=== PATIENT | male | born 1970 | race Two or more races ===

== ENCOUNTER 2016-09-16 13:22 | Inpatient (IN) | payer OTHER ==
[2016-09-16 17:42] VITALS: BMI 25.5
--- NOTE | 2016-09-16 18:03 | HP ---
Admission [facility] Chief Complaint: I WANT TO GO TO REHAB Allergies/Adverse Reactions: Allergies Allergy/AdvReac Type Severity Reaction Status Date / Time peanut Allergy Severe Difficulty Verified 09/16/16 17:48 Breathing No Known Drug Allergies Allergy Verified 09/16/16 17:48 History of Present Illness: 45 YEARS OLD MALE WITH LONG HISTORY OF COCAINE NICOTINE DEPENDENCE DIABETES II METHADONE MAINTENANCE 100 MG IS ADMITTED TO REHAB Exam Limitations: No Limitations - Ebola screening Have you traveled outside of the country in the last 21 days: No Have you had contact with anyone from an Ebola affected area: No Have you been sick,other than usual withdrawal symptoms: No Do you have a fever: No - Review of Systems Constitutional: Loss of Appetite, Unintentional Wgt. Loss, Unexplained wgt Loss EENT: reports: Blurred Vision (NEEDED EYE GLASSES), Hearing Loss (LEFT), Dental Problems (UPPER DENTURE) Respiratory: reports: No Symptoms reported Cardiac: reports: No Symptoms Reported GI: reports: No Symptoms Reported, Poor Fluid Intake : reports: No Symptoms Reported Musculoskeletal: reports: No Symptoms Reported Integumentary: reports: Change in Color (RIGHT ELBOW) Neuro: reports: No Symptoms reported Endocrine: reports: No Symptoms Reported Patient History - Patient Medical History Hx Anemia: No Hx Asthma: No Hx Chronic Obstructive Pulmonary Disease (COPD): No Hx Cancer: No Hx Cardiac Disorders: No Hx Congestive Heart Failure: No Hx Hypertension: No Hx Hypercholesterolemia: No Hx Pacemaker: No HX Cerebrovascular Accident: No Hx Seizures: No Hx Dementia: No Hx Diabetes: Yes Hx Gastrointestinal Disorders: No Hx Liver Disease: No Hx Genitourinary Disorders: No Hx Sexually Transmitted Disorders: No Hx Renal Disease (ESRD): No Hx Thyroid Disease: No Hx Human Immunodeficiency Virus (HIV): No Hx Hepatitis C: Yes (SCHEDULE TO TREAT) Hx Depression: Yes Hx Suicide Attempt: Yes (2012 CUT NECK) Hx Bipolar Disorder: No Hx Schizophrenia: No - Patient Surgical History Past Surgical History: Yes Hx Neurologic Surgery: No Hx Cataract Extraction: No Hx Cardiac Surgery: No Hx Lung Surgery: No Hx Breast Surgery: No Hx Breast Biopsy: No Hx Abdominal Surgery: Yes (R HERNIA INGURNAL) Hx Appendectomy: No Hx Cholecystectomy: No Hx Genitourinary Surgery: No Hx Orthopedic Surgery: No Other Surgical History: LEFT NECK GUN Anesthesia Reaction: No - PPD History Previous Implant?: Yes Documented Results: Negative w/o proof Implanted On Prior [facility] Admission?: No PPD to be Administered?: Yes - Smoking Cessation Smoking history: Current every day smoker Have you smoked in the past 12 months: Yes Aproximately how many cigarettes per day: 3 Cigars Per Day: 0 Hx Chewing Tobacco Use: No Initiated information on smoking cessation: Yes 'Breaking Loose' booklet given: 09/16/16 - Substance & Tx. History Hx Alcohol Use: No Hx Substance Use: Yes Substance Use Type: Cocaine, Opiates Hx Substance Use Treatment: Yes - Substances Abused Cocaine Route: Injection Frequency: Daily Amount used: 30 BAGS Age of first use: 18 Date of Last Use: 09/15/16 Heroin Route: Inhalation Frequency: Daily Amount used: 3 bags Age of first use: 38 Date of Last Use: 09/16/16 Family Disease History - Family Disease History Family History: Unremarkable Admission Physical Exam [facility] - Vital Signs Vital Signs: Vital Signs - 24 hr 09/16/16 17:39 Temperature 95 F L Pulse Rate 51 L Respiratory 16 Rate Blood Pressure 116/72 - Physical General Appearance: Yes: No Apparent Distress, Appropriately Dressed, Thin HEENTM: Yes: Hearing grossly Normal, Normal ENT Inspection, Normocephalic, Normal Voice Respiratory: Yes: Chest Non-Tender, Lungs Clear, Normal Breath Sounds, No Respiratory Distress, No Accessory Muscle Use Neck: Yes: Supple, Trachea in good position Breast: Yes: Breasts Symetrical Cardiology: Yes: Regular Rhythm, Regular Rate, S1, S2 Abdominal: Yes: Non Tender, Soft Genitourinary: Yes: Within Normal Limits Back: Yes: Normal Inspection Musculoskeletal: Yes: full range of Motion, Gait Steady Neurological: Yes: Fully Oriented, Alert, Motor Strength 5/5, Normal Mood/Affect , Normal Response Integumentary: Yes: Warm, Track Barber Lymphatic: Yes: Within Normal Limits - Diagnostic (1) Cocaine dependence, uncomplicated Current Visit: Yes Status: Chronic (2) Methadone maintenance therapy patient Current Visit: Yes Status: Chronic Comment: 100 MG VERIFICATION PENDING (3) Nicotine dependence Current Visit: Yes Status: Acute Qualifiers: Nicotine product type: cigarettes Substance use status: in withdrawal Qualified Code(s): F17.213 - Nicotine dependence, cigarettes, with withdrawal (4) Hepatitis C antibody test positive Current Visit: Yes Status: Resolved (5) Weight loss Current Visit: Yes Status: Acute (6) Diabetes mellitus type II, controlled Current Visit: Yes Status: Chronic Qualifiers: Diabetes mellitus complication status: without complication Diabetes mellitus insole taper insulin use: with insole taper use Qualified Code(s): E11.9 - Type 2 diabetes mellitus without complications (7) Use of cane as ambulatory aid Current Visit: Yes Status: Chronic [facility] Breath Alcohol Content Breath Alcohol Content: 0 Urine Drug Screen - Results Drug Screen Negative: No Urine Drug Screen Results: LUCI-Cocaine, OPI-Opiates, MTD-Methadone
[2016-09-16] MEDS ORDERED: MAGNESIUM HYDROX 2400MG/30ML ORAL SUSPENSION 30 ML CUP PO PRN (18:18)
[2016-09-16] MEDS ORDERED: MAGNESIUM CITRATE 300 ML BOTTLE PO PRN (18:18)
[2016-09-16] MEDS ORDERED: hydrOXYzine PAMOATE 50 MG CAPSULE (FP) PO PRN (18:18)
[2016-09-16] MEDS ORDERED: NICOTINE POLACRILEX 2 MG GUM BC PRN (18:18)
[2016-09-16] MEDS ORDERED: ACETAMINOPHEN 325 MG TABLET (FP) PO PRN (18:18)
[2016-09-16] MEDS ORDERED: P-EPHED 60MG/TRIPROLIDI 2.5MG TABLET PO PRN (18:18)
[2016-09-16] MEDS ORDERED: MAG HYDROX/AL HYDROX/SIMETH 30 ML UNIT-DOSE CUP PO PRN (18:18)
[2016-09-16] MEDS ORDERED: LOPERAMIDE HCL 2 MG CAPSULE PO PRN (18:18)
[2016-09-16] MEDS ORDERED: IBUPROFEN 400 MG TABLET (FP) PO PRN (18:18)
[2016-09-16] MEDS ORDERED: MENTHOL/PHENOL 1 EACH UD MM PRN (18:18)
[2016-09-16] MEDS ORDERED: guaiFENesin/D-METHORPHAN HB 10 ML UNIT-DOSE CUPS PO PRN (18:18)
[2016-09-16] MEDS: INSULIN SLIDING SCALE (NOVOLOG) 1 VIAL SQ SCH (20:59)
[2016-09-16] MEDS ORDERED: INSULIN (NOVOLOG) ASPART 100 UNITS/ML 10ML VIAL ONE (20:59)
[2016-09-16] MEDS: THIAMINE HCL 100 MG TABLET (FP) PO SCH (21:01)
[2016-09-17] MEDS ORDERED: INSULIN (NOVOLOG) ASPART 100 UNITS/ML 10ML VIAL ONE ×2 (06:04→21:39)
[2016-09-17] MEDS: metFORMIN HCL 500 MG TABLET (FP) PO SCH (06:05)
[2016-09-17] MEDS: INSULIN SLIDING SCALE (NOVOLOG) 1 VIAL SQ SCH ×2 (06:25→21:39)
[2016-09-17] MEDS ORDERED: METHADONE HCL 40 MG DISPERSABLE TABLET PO SCH (07:30)
[2016-09-17] MEDS ORDERED: METHADONE 80 MG, METHADONE 20 MG PO SCH (07:45)
[2016-09-17] MEDS ORDERED: METHADONE HCL 10 MG TABLET ONE (07:50)
[2016-09-17] MEDS ORDERED: METHADONE HCL 40 MG DISPERSABLE TABLET ONE (07:50)
[2016-09-17] MEDS: METHADONE 80 MG, METHADONE 20 MG PO SCH (07:57)
[2016-09-17] MEDS ORDERED: TUBERCULIN PPD 5 TU/0.1ML VIAL ID ONE (08:11)
[2016-09-17 10:01] LABS: MCH 32.5 pg (25.7-33.7); MCHC 34.1 g/dl (32.0-35.9); MEAN CELL VOLUME 95.2 fl (80-96); MEAN PLT VOLUME 9.6 fl (7.5-11.1); PLATELET COUNT 175 K/MM3 (134-434); RDW 14.2 % (11.9-15.9); WHITE BLOOD COUNT 6.3 K/mm3 (4.0-10.0)
[2016-09-17] MEDS: PRENATAL VITAMINS W/ FOLIC ACID TABLET (FP) PO SCH (10:29)
[2016-09-17] MEDS: NICOTINE 14 MG/24 HOURS TOPICAL PATCH TD SCH (10:30)
[2016-09-17 10:36] LABS: ALBUMIN 3.5 g/dl (3.4-5.0); ALK PHOS 130 U/L (45-117); ANION GAP 11 (8-16); BILIRUBIN,TOTAL 0.3 mg/dL (0.2-1.0); CALCIUM 8.7 mg/dL (8.5-10.1); CO2 26 mmol/L (21-32); COCKROFT - GAULT 98.88; CREATININE 1.1 mg/dL (0.7-1.3); SGOT/AST 71 U/L (15-37); SGPT/ALT 100 U/L (12-78); TOT PROT 6.8 g/dl (6.4-8.2)
[2016-09-17 11:16] LABS: HIV 1 & 2 AB NEGATIVE; HIV 1 AGp24 NEGATIVE
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
[2016-09-17 12:04] LABS: GLUCOSE,RANDOM 390 mg/dL (74-106)
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
[2016-09-17] MEDS: GABAPENTIN 100 MG CAPSULE (FP) PO SCH ×2 (14:55→21:40)
[2016-09-17] MEDS: THIAMINE HCL 100 MG TABLET (FP) PO SCH (21:40)
--- NOTE | 2016-09-17 23:07 | EKG ---
Test Reason : Blood Pressure : / mmHG Vent. Rate : 050 BPM Atrial Rate : 050 BPM P-R Int : 130 ms QRS Dur : 084 ms QT Int : 424 ms P-R-T Axes : 048 -27 013 degrees QTc Int : 386 ms SINUS BRADYCARDIA NONSPECIFIC T WAVE ABNORMALITY ABNORMAL ECG NO PREVIOUS ECGS AVAILABLE Confirmed by SILVIA GOLD MD ([id number]) on 09/17/2016 11:07:05 PM Referred By: Confirmed By:SILVIA GOLD MD
[2016-09-18] MEDS ORDERED: METHADONE HCL 10 MG TABLET ONE (03:27)
[2016-09-18] MEDS ORDERED: METHADONE HCL 40 MG DISPERSABLE TABLET ONE (03:27)
[2016-09-18] MEDS: METHADONE 80 MG, METHADONE 20 MG PO SCH (06:12)
[2016-09-18] MEDS: GABAPENTIN 100 MG CAPSULE (FP) PO SCH ×3 (06:12→21:31)
[2016-09-18] MEDS: metFORMIN HCL 500 MG TABLET (FP) PO SCH (06:12)
[2016-09-18] MEDS: INSULIN SLIDING SCALE (NOVOLOG) 1 VIAL SQ SCH ×2 (06:15→21:31)
[2016-09-18] MEDS ORDERED: INSULIN (NOVOLOG) ASPART 100 UNITS/ML 10ML VIAL ONE ×2 (06:40→21:31)
[2016-09-18] MEDS: NICOTINE 14 MG/24 HOURS TOPICAL PATCH TD SCH (10:16)
[2016-09-18] MEDS: PRENATAL VITAMINS W/ FOLIC ACID TABLET (FP) PO SCH (10:16)
[2016-09-18 14:15] LABS: URINE APPEARANCE CLEAR; URINE BILIRUBIN NEGATIVE (NEGATIVE); URINE BLOOD NEGATIVE (NEGATIVE); URINE COLOR LTYELLOW; URINE GLUCOSE (UA) 3+ (NEGATIVE); URINE KETONE NEGATIVE (NEGATIVE); URINE LEUK ESTERASE NEGATIVE (NEGATIVE); URINE NITRITE NEGATIVE (NEGATIVE); URINE PROTEIN NEGATIVE (NEGATIVE); URINE UROBILINOGEN NEGATIVE E.U./dl (0.2-1.0)
[2016-09-18] MEDS: THIAMINE HCL 100 MG TABLET (FP) PO SCH (21:31)
[2016-09-19] MEDS ORDERED: METHADONE HCL 10 MG TABLET ONE (05:47)
[2016-09-19] MEDS ORDERED: METHADONE HCL 40 MG DISPERSABLE TABLET ONE (05:48)
[2016-09-19] MEDS: INSULIN SLIDING SCALE (NOVOLOG) 1 VIAL SQ SCH ×2 (06:40→21:40)
[2016-09-19] MEDS: GABAPENTIN 100 MG CAPSULE (FP) PO SCH ×3 (06:40→21:37)
[2016-09-19] MEDS: metFORMIN HCL 500 MG TABLET (FP) PO SCH (06:40)
[2016-09-19] MEDS: METHADONE 80 MG, METHADONE 20 MG PO SCH (06:41)
[2016-09-19] MEDS: NICOTINE 14 MG/24 HOURS TOPICAL PATCH TD SCH (10:19)
[2016-09-19] MEDS: PRENATAL VITAMINS W/ FOLIC ACID TABLET (FP) PO SCH (10:20)
--- NOTE | 2016-09-19 13:00 | PN ---
S Progress Note (SOAP) Subjective: nausea, with abdominal pain worse after meals , assoc. with diarrhea Objective: 09/19/16 12:59 Vital Signs Temperature 97.4 F L 09/19/16 06:57 Pulse Rate 63 09/19/16 06:57 Respiratory Rate 18 09/19/16 06:57 Blood Pressure 129/84 09/19/16 06:57 O2 Sat by Pulse Oximetry (%) Laboratory Tests 09/16/16 09/17/16 09/17/16 20:51 06:00 06:00 WBC 6.3 RBC 3.95 L Hgb 12.8 Hct 37.6 MCV 95.2 MCHC 34.1 RDW 14.2 Plt Count 175 MPV 9.6 Sodium 143 Potassium 4.0 Chloride 106 Carbon Dioxide 26 Anion Gap 11 BUN 6 L Creatinine 1.1 Creat Clearance w eGFR > 60 POC Glucometer 438 Random Glucose 390 H* Calcium 8.7 Total Bilirubin 0.3 AST 71 H ALT 100 H Alkaline Phosphatase 130 H Total Protein 6.8 Albumin 3.5 Urine Color Urine Appearance Urine pH Ur Specific Porum Urine Protein Urine Glucose (UA) Urine Ketones Urine Blood Urine Nitrite Urine Bilirubin Urine Urobilinogen Ur Leukocyte Esterase RPR Titer HIV 1&2 Antibody Screen HIV P24 Antigen 09/17/16 09/17/16 09/17/16 06:00 06:02 07:00 WBC RBC Hgb Hct MCV MCHC RDW Plt Count MPV Sodium Potassium Chloride Carbon Dioxide Anion Gap BUN Creatinine Creat Clearance w eGFR POC Glucometer 304 Random Glucose Calcium Total Bilirubin AST ALT Alkaline Phosphatase Total Protein Albumin Urine Color Urine Appearance Urine pH Ur Specific Porum Urine Protein Urine Glucose (UA) Urine Ketones Urine Blood Urine Nitrite Urine Bilirubin Urine Urobilinogen Ur Leukocyte Esterase RPR Titer Nonreactive HIV 1&2 Antibody Screen Negative HIV P24 Antigen Negative 09/17/16 09/18/16 09/18/16 21:37 06:13 11:10 WBC RBC Hgb Hct MCV MCHC RDW Plt Count MPV Sodium Potassium Chloride Carbon Dioxide Anion Gap BUN Creatinine Creat Clearance w eGFR POC Glucometer 336 231 Random Glucose Calcium Total Bilirubin AST ALT Alkaline Phosphatase Total Protein Albumin Urine Color Ltyellow Urine Appearance Clear Urine pH 5.0 Ur Specific Porum 1.020 Urine Protein Negative Urine Glucose (UA) 3+ H Urine Ketones Negative Urine Blood Negative Urine Nitrite Negative Urine Bilirubin Negative Urine Urobilinogen Negative Ur Leukocyte Esterase Negative RPR Titer HIV 1&2 Antibody Screen HIV P24 Antigen 09/18/16 09/19/16 21:30 06:39 WBC RBC Hgb Hct MCV MCHC RDW Plt Count MPV Sodium Potassium Chloride Carbon Dioxide Anion Gap BUN Creatinine Creat Clearance w eGFR POC Glucometer 333 183 Random Glucose Calcium Total Bilirubin AST ALT Alkaline Phosphatase Total Protein Albumin Urine Color Urine Appearance Urine pH Ur Specific Porum Urine Protein Urine Glucose (UA) Urine Ketones Urine Blood Urine Nitrite Urine Bilirubin Urine Urobilinogen Ur Leukocyte Esterase RPR Titer HIV 1&2 Antibody Screen HIV P24 Antigen pt aox3 ambulating with cane appearing uneasy 09/19/16 13:00 lungs clear to a/p cor rrr, no murmur abd well healed rlq scar, soft, mild ruq tenderness , no mass or rebound , bs active 09/19/16 13:05 Assessment: 09/19/16 13:06 m diabetic with ruq pain , nausea r/o gbd Plan: cbc sma7, ketones u/a sgot sgpt amylase lipase u/s of abdomen [id number] po bid
[2016-09-19 15:55] LABS: BASOPHIL 0.6 % (0-2.0); EOSINOPHIL 1.8 % (0-4.5); MCH 32.2 pg (25.7-33.7); MCHC 34.3 g/dl (32.0-35.9); MEAN CELL VOLUME 93.8 fl (80-96); MEAN PLT VOLUME 8.8 fl (7.5-11.1); NEUTROPHILS 61.7 % (42.8-82.8); PLATELET COUNT 196 K/MM3 (134-434); WHITE BLOOD COUNT 6.7 K/mm3 (4.0-10.0)
[2016-09-19 15:57] LABS: AMYLASE 62 U/L (25-115); ANION GAP 7 (8-16); CALCIUM 8.5 mg/dL (8.5-10.1); CO2 29 mmol/L (21-32); COCKROFT - GAULT 108.77; GLUCOSE,RANDOM 269 mg/dL (74-106)
[2016-09-19 15:58] LABS: SGOT/AST 69 U/L (15-37); SGPT/ALT 95 U/L (12-78)
[2016-09-19 20:20] LABS: ACETONE SERUM NEGATIVE (NEGATIVE)
[2016-09-19] MEDS: RANITIDINE HCL 150 MG TABLET (FP) PO SCH (21:37)
[2016-09-19] MEDS: diphenhydrAMINE HCL 50 MG CAPSULE PO PRN (21:37)
[2016-09-19] MEDS: THIAMINE HCL 100 MG TABLET (FP) PO SCH (21:37)
[2016-09-20] MEDS ORDERED: METHADONE HCL 10 MG TABLET ONE (03:24)
[2016-09-20] MEDS ORDERED: METHADONE HCL 40 MG DISPERSABLE TABLET ONE (03:25)
[2016-09-20] MEDS: METHADONE 80 MG, METHADONE 20 MG PO SCH (06:14)
[2016-09-20] MEDS: metFORMIN HCL 500 MG TABLET (FP) PO SCH (06:14)
[2016-09-20] MEDS: GABAPENTIN 100 MG CAPSULE (FP) PO SCH ×4 (06:14→22:52)
[2016-09-20] MEDS: INSULIN SLIDING SCALE (NOVOLOG) 1 VIAL SQ SCH ×2 (06:15→21:45)
[2016-09-20] MEDS: NICOTINE 14 MG/24 HOURS TOPICAL PATCH TD SCH (10:04)
[2016-09-20] MEDS: PRENATAL VITAMINS W/ FOLIC ACID TABLET (FP) PO SCH ×2 (10:04→10:48)
[2016-09-20] MEDS: RANITIDINE HCL 150 MG TABLET (FP) PO SCH ×3 (10:04→21:40)
--- NOTE | 2016-09-20 13:37 | PN ---
Psychiatric Progress Note Vital Signs: Vital Signs Period Temp Pulse Resp BP Sys/Bose Pulse Ox Last 24 Hr 98.1 F 53 16-16 123/80 Date of Session: 09/20/16 Chief Complaint:: psychiatric evaluation HPI: patient is a 45 year old with hisotry of cocaine, opioid, nicotine dependence comorbid PTSD, Depression. Current Medications: Active Medications Generic Name Dose Route Start Last Admin Trade Name Freq PRN Reason Stop Dose Admin Acetaminophen 650 mg 09/16/16 18:18 Tylenol - PO Q4H PRN PAIN Al Hydroxide/Mg Hydroxide 30 ml 09/16/16 18:18 09/19/16 08:27 Mylanta Oral Suspension - PO 30 ml Q6H PRN Administration DYSPEPSIA Diphenhydramine HCl 50 mg 09/16/16 18:18 09/19/16 21:37 Benadryl - PO 50 mg HSMR1 PRN Administration INSOMNIA Eucalyptus/Menthol/Phenol/Sorbitol 1 each 09/16/16 18:18 Cepastat Lozenge - MM Q4H PRN SORE THROAT Gabapentin 200 mg 09/20/16 13:06 Neurontin - PO TID NAYANA Guaifenesin 10 ml 09/16/16 18:18 Robitussin Dm - PO Q6H PRN COUGH Hydroxyzine Pamoate 50 mg 09/20/16 22:00 Vistaril - PO BID NAYANA Ibuprofen 400 mg 09/16/16 18:18 Motrin - PO Q6H PRN SEVERE PAIN Insulin Aspart 1 vial 09/17/16 07:00 09/20/16 06:15 Novolog Vial Sliding Scale - SQ Not Given ACBK [facility] Protocol Insulin Aspart 1 vial 09/16/16 22:00 09/19/16 21:40 Novolog Vial Sliding Scale - SQ Not Given HS [facility] Protocol Loperamide HCl 4 mg 09/16/16 18:18 Imodium - PO Q6H PRN DIARRHEA Magnesium Citrate 300 ml 09/16/16 18:18 Citroma - PO Q48H PRN CONSTIPATION Magnesium Hydroxide 30 ml 09/16/16 18:18 Milk Of Magnesia - PO DAILY PRN CONSTIPATION Metformin HCl 1,000 mg 09/17/16 07:00 09/20/16 06:14 Glucophage - PO 1,000 mg DAILY@0700 [facility] Administration Methadone HCl 80 mg/ Methadone 100 mg 09/17/16 08:00 05/05/17 06:14 HCl 20 mg PO 100 mg DAILY@0600 [facility] Administration Nicotine 14 mg 09/17/16 10:00 09/20/16 10:04 Nicoderm Patch - TD Not Given DAILY [facility] Nicotine Polacrilex 2 mg 09/16/16 18:18 Nicorette Gum - BC Q2H PRN NICOTINE REPLACEMENT RX Multivit/Folic Acid/Iron 1 tab 09/17/16 10:00 09/20/16 10:48 Vitamins ([facility]) - PO Not Given DAILY NAYANA Pseudoephedrine/Triprolidine 1 combo 09/16/16 18:18 Actifed - PO TID PRN NASAL CONGESTION Ranitidine HCl 150 mg 09/19/16 22:00 09/20/16 10:48 Zantac - PO Not Given BID NAYANA Sertraline HCl 50 mg 09/21/16 10:00 Zoloft - PO DAILY NAYANA Thiamine HCl 100 mg 09/16/16 22:00 09/19/16 21:37 Vitamin B1 - PO 100 mg HS NAYANA Administration Medication(s) Change(s): start Zoloft 50 mg po hs, increase Neurontin 200 mg po tid, Vistaril 50 mg po bid, Seroquel 25 mg po hs and PRN for agitation q4h. Current Side Effect: No Lab tests ordered: No Lab tests reviewed: Yes Provider note:: Patient was evaluated today, because patient made a phone call to his top case assembler [place] at [facility] and left message that he has thoughts of hurting himself. During evaluation patient was irritable reported he needs his Xanax and Ambien, when patient was recommended alternative medications he became angry and stepped out of office. Patient is paranoid , thinks that staff laughing on him. Then later today patient was seen with his counselor Jr Mcclure and clinical supervisor trust accounts Bryan Palma, patient again was discussed the importnace of taking recommended medications but he declined, patient was recommended to go to the psychiatric unit, he did not want meanwhile the technical writer called several hospitals for beds ([facility], [facility], [facility]) unsuccessful. Patient was put on 1:1 for safety. Later nurse called and reported that patient refusing medications. Then patient acted out and security was called. Patient asked to be seen privalty and he was seen patient reported he is refusing any medications but needs his xanax and ambien, does not want any person in his room observing him, patient was explaned that this is for his safety and was encouraged to take medications, he declined any help. Patient states he is not going to take Seroquel and it needs to be discontinued. Total face to face time:: 45 Mental Status Exam - Mental Status Exam Alert and Oriented to: Place, Person Cognitive Function: Impaired Patient Appearance: Unkempt Mood: Angry, Apathetic, Suspicious, Irritable Affect: Mood Congruent, Flat, Constricted Patient Behavior: Guarded, Suspicious Speech Pattern: Clear Voice Loudness: Normal Thought Process: Goal Oriented Thought Disorder: Paranoid Ideation, Delusional Hallucinations: Denies Suicidal Ideation: Denies ("if I was going to hurt myself I would have already done it") Homicidal Ideation: Denies Insight/Judgement: Fair Sleep: Fair Appetite: Fair Muscle strength/Tone: Normal Gait/Station: Normal Psychiatric Treatment Plan - Problem List (1) Methadone maintenance therapy patient Current Visit: Yes Comment: 100 MG VERIFICATION PENDING (2) Nicotine dependence Current Visit: Yes Qualifiers: Nicotine product type: cigarettes Substance use status: in withdrawal Qualified Code(s): F17.213 - Nicotine dependence, cigarettes, with withdrawal (3) Cocaine dependence Current Visit: Yes (4) Opioid dependence Current Visit: Yes (5) PTSD (post-traumatic stress disorder) Current Visit: Yes (6) Depression Current Visit: Yes
[2016-09-20] MEDS ORDERED: QUEtiapine FUMARATE 25 MG TABLET (FP) PO PRN (13:50)
[2016-09-20] MEDS: THIAMINE HCL 100 MG TABLET (FP) PO SCH (21:40)
[2016-09-20] MEDS: diphenhydrAMINE HCL 50 MG CAPSULE PO PRN (21:41)
[2016-09-20] MEDS: SUVOREXANT 10 MG TABLET PO PRN (21:43)
[2016-09-20] MEDS ORDERED: QUEtiapine FUMARATE 50 MG TABLET PO SCH (22:00)
[2016-09-20] MEDS: hydrOXYzine PAMOATE 25 MG CAPSULE (FP) PO SCH (22:53)
[2016-09-21] MEDS ORDERED: METHADONE HCL 10 MG TABLET ONE (04:23)
[2016-09-21] MEDS ORDERED: METHADONE HCL 40 MG DISPERSABLE TABLET ONE (04:24)
[2016-09-21] MEDS: METHADONE 80 MG, METHADONE 20 MG PO SCH (06:04)
[2016-09-21] MEDS: metFORMIN HCL 500 MG TABLET (FP) PO SCH (06:04)
[2016-09-21] MEDS: GABAPENTIN 100 MG CAPSULE (FP) PO SCH ×3 (06:04→21:37)
[2016-09-21] MEDS: INSULIN SLIDING SCALE (NOVOLOG) 1 VIAL SQ SCH ×2 (06:06→21:41)
[2016-09-21] MEDS ORDERED: SERTRALINE HCL 50 MG TABLET (FP) PO SCH ×2 (10:00→16:45)
[2016-09-21] MEDS: NICOTINE 14 MG/24 HOURS TOPICAL PATCH TD SCH (10:21)
[2016-09-21] MEDS: PRENATAL VITAMINS W/ FOLIC ACID TABLET (FP) PO SCH (10:21)
[2016-09-21] MEDS: RANITIDINE HCL 150 MG TABLET (FP) PO SCH ×2 (10:21→21:37)
[2016-09-21] MEDS: hydrOXYzine PAMOATE 25 MG CAPSULE (FP) PO SCH ×2 (10:24→21:37)
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
[2016-09-21] MEDS ORDERED: risperiDONE 1 MG TABLET (FP) PO STA (16:43)
[2016-09-21] MEDS: THIAMINE HCL 100 MG TABLET (FP) PO SCH (21:37)
[2016-09-22] MEDS: SUVOREXANT 10 MG TABLET PO PRN (01:16)
[2016-09-22] MEDS ORDERED: METHADONE HCL 40 MG DISPERSABLE TABLET ONE (03:45)
[2016-09-22] MEDS ORDERED: METHADONE HCL 10 MG TABLET ONE (03:45)
[2016-09-22] MEDS: GABAPENTIN 100 MG CAPSULE (FP) PO SCH ×3 (06:30→21:46)
[2016-09-22] MEDS: METHADONE 80 MG, METHADONE 20 MG PO SCH (06:30)
[2016-09-22] MEDS: metFORMIN HCL 500 MG TABLET (FP) PO SCH (06:30)
[2016-09-22] MEDS: INSULIN SLIDING SCALE (NOVOLOG) 1 VIAL SQ SCH ×2 (06:32→21:46)
[2016-09-22] MEDS: hydrOXYzine PAMOATE 25 MG CAPSULE (FP) PO SCH ×2 (10:34→21:46)
[2016-09-22] MEDS: RANITIDINE HCL 150 MG TABLET (FP) PO SCH ×2 (10:35→21:46)
[2016-09-22] MEDS: PRENATAL VITAMINS W/ FOLIC ACID TABLET (FP) PO SCH (10:35)
[2016-09-22] MEDS: risperiDONE 1 MG TABLET (FP) PO SCH ×2 (10:35→21:45)
[2016-09-22] MEDS: SERTRALINE HCL 50 MG TABLET (FP) PO SCH (10:35)
[2016-09-22] MEDS: NICOTINE 14 MG/24 HOURS TOPICAL PATCH TD SCH (10:36)
[2016-09-22] MEDS: THIAMINE HCL 100 MG TABLET (FP) PO SCH (21:45)
[2016-09-23] MEDS ORDERED: METHADONE HCL 10 MG TABLET ONE (03:23)
[2016-09-23] MEDS ORDERED: METHADONE HCL 40 MG DISPERSABLE TABLET ONE (03:23)
[2016-09-23] MEDS: METHADONE 80 MG, METHADONE 20 MG PO SCH (06:15)
[2016-09-23] MEDS: metFORMIN HCL 500 MG TABLET (FP) PO SCH (06:15)
[2016-09-23] MEDS: GABAPENTIN 100 MG CAPSULE (FP) PO SCH ×3 (06:15→21:54)
[2016-09-23] MEDS: INSULIN SLIDING SCALE (NOVOLOG) 1 VIAL SQ SCH ×2 (06:16→21:53)
[2016-09-23] MEDS: hydrOXYzine PAMOATE 25 MG CAPSULE (FP) PO SCH ×2 (10:45→21:54)
[2016-09-23] MEDS: RANITIDINE HCL 150 MG TABLET (FP) PO SCH ×2 (10:45→21:54)
[2016-09-23] MEDS: PRENATAL VITAMINS W/ FOLIC ACID TABLET (FP) PO SCH (10:45)
[2016-09-23] MEDS: SERTRALINE HCL 50 MG TABLET (FP) PO SCH (10:45)
[2016-09-23] MEDS: NICOTINE 14 MG/24 HOURS TOPICAL PATCH TD SCH (10:45)
[2016-09-23] MEDS: risperiDONE 1 MG TABLET (FP) PO SCH ×2 (10:45→21:54)
[2016-09-23] MEDS ORDERED: ONDANSETRON *ODT* 4 MG TABLET SL PRN (12:45)
--- NOTE | 2016-09-23 13:13 | PN ---
[facility] Progress Note Note: u/s of abd- fatty liver, ? mass/bowel head of pancreas.ct of abd recommended . plan request ct of abd with contrast.
[2016-09-23] MEDS: THIAMINE HCL 100 MG TABLET (FP) PO SCH (21:54)
[2016-09-24] MEDS ORDERED: METHADONE HCL 40 MG DISPERSABLE TABLET ONE (03:16)
[2016-09-24] MEDS ORDERED: METHADONE HCL 10 MG TABLET ONE (03:16)
[2016-09-24] MEDS: metFORMIN HCL 500 MG TABLET (FP) PO SCH (06:18)
[2016-09-24] MEDS: GABAPENTIN 100 MG CAPSULE (FP) PO SCH ×3 (06:18→21:51)
[2016-09-24] MEDS: METHADONE 80 MG, METHADONE 20 MG PO SCH (06:19)
[2016-09-24] MEDS: INSULIN SLIDING SCALE (NOVOLOG) 1 VIAL SQ SCH ×2 (06:20→21:54)
[2016-09-24] MEDS: PRENATAL VITAMINS W/ FOLIC ACID TABLET (FP) PO SCH (14:06)
[2016-09-24] MEDS: SERTRALINE HCL 50 MG TABLET (FP) PO SCH (14:07)
[2016-09-24] MEDS: hydrOXYzine PAMOATE 25 MG CAPSULE (FP) PO SCH ×2 (14:07→21:50)
[2016-09-24] MEDS: RANITIDINE HCL 150 MG TABLET (FP) PO SCH ×2 (14:07→21:50)
[2016-09-24] MEDS: risperiDONE 1 MG TABLET (FP) PO SCH ×2 (14:07→21:50)
[2016-09-24] MEDS: NICOTINE 14 MG/24 HOURS TOPICAL PATCH TD SCH (14:08)
[2016-09-24] MEDS: THIAMINE HCL 100 MG TABLET (FP) PO SCH (21:51)
[2016-09-24] MEDS ORDERED: INSULIN (NOVOLOG) ASPART 100 UNITS/ML 10ML VIAL ONE (21:54)
[2016-09-25] MEDS ORDERED: METHADONE HCL 10 MG TABLET PO SCH (06:00)
[2016-09-25] MEDS ORDERED: METHADONE HCL 10 MG TABLET ONE (06:04)
[2016-09-25] MEDS ORDERED: METHADONE HCL 40 MG DISPERSABLE TABLET ONE (06:04)
[2016-09-25] MEDS: GABAPENTIN 100 MG CAPSULE (FP) PO SCH ×3 (06:20→21:58)
[2016-09-25] MEDS: METHADONE 80 MG, METHADONE 20 MG PO SCH (06:20)
[2016-09-25] MEDS: INSULIN SLIDING SCALE (NOVOLOG) 1 VIAL SQ SCH ×2 (06:21→22:00)
[2016-09-25 07:35] VITALS: TEMP 97.8
[2016-09-25] MEDS: risperiDONE 1 MG TABLET (FP) PO SCH ×2 (10:31→21:58)
[2016-09-25] MEDS: hydrOXYzine PAMOATE 25 MG CAPSULE (FP) PO SCH ×2 (10:31→21:58)
[2016-09-25] MEDS: PRENATAL VITAMINS W/ FOLIC ACID TABLET (FP) PO SCH (10:31)
[2016-09-25] MEDS: SERTRALINE HCL 50 MG TABLET (FP) PO SCH (10:31)
[2016-09-25] MEDS: RANITIDINE HCL 150 MG TABLET (FP) PO SCH ×2 (10:31→21:58)
[2016-09-25] MEDS: NICOTINE 14 MG/24 HOURS TOPICAL PATCH TD SCH (10:32)
[2016-09-25 10:40] LABS: CALCIUM 9.3 mg/dL (8.5-10.1); COCKROFT - GAULT 83.67; CREATININE 1.3 mg/dL (0.7-1.3)
[2016-09-25] MEDS: THIAMINE HCL 100 MG TABLET (FP) PO SCH (21:58)
[2016-09-25] MEDS ORDERED: INSULIN (NOVOLOG) ASPART 100 UNITS/ML 10ML VIAL ONE (22:01)
[2016-09-26] MEDS ORDERED: METHADONE HCL 10 MG TABLET ONE (03:26)
[2016-09-26] MEDS ORDERED: METHADONE HCL 40 MG DISPERSABLE TABLET ONE (03:27)
[2016-09-26] MEDS: METHADONE 80 MG, METHADONE 20 MG PO SCH (06:19)
[2016-09-26] MEDS: GABAPENTIN 100 MG CAPSULE (FP) PO SCH (06:19)
[2016-09-26] MEDS: INSULIN SLIDING SCALE (NOVOLOG) 1 VIAL SQ SCH (06:20)
[2016-09-26 06:48] VITALS: BP 121/77; PULSE 65
[2016-09-26] MEDS: PRENATAL VITAMINS W/ FOLIC ACID TABLET (FP) PO SCH (10:02)
[2016-09-26] MEDS: risperiDONE 1 MG TABLET (FP) PO SCH (10:02)
[2016-09-26] MEDS: SERTRALINE HCL 50 MG TABLET (FP) PO SCH (10:02)
[2016-09-26] MEDS: RANITIDINE HCL 150 MG TABLET (FP) PO SCH (10:02)
[2016-09-26] MEDS: hydrOXYzine PAMOATE 25 MG CAPSULE (FP) PO SCH (10:03)
[2016-09-26] MEDS: NICOTINE 14 MG/24 HOURS TOPICAL PATCH TD SCH (10:10)
--- NOTE | 2016-09-26 10:49 | PN ---
Psychiatric Progress Note Vital Signs: Vital Signs Period Temp Pulse Resp BP Sys/Bose Pulse Ox Last 24 Hr 97.8 F 65 16-18 121/77 Date of Session: 09/26/16 Chief Complaint:: discharge viisit HPI: Patient has addressed cocaine, opioid,nicotine dependence comorbid PTSD, MDD. Current Medications: Active Medications Generic Name Dose Route Start Last Admin Trade Name Freq PRN Reason Stop Dose Admin Al Hydroxide/Mg Hydroxide 30 ml 09/16/16 18:18 09/19/16 08:27 Mylanta Oral Suspension - PO 30 ml Q6H PRN Administration DYSPEPSIA Diphenhydramine HCl 50 mg 09/16/16 18:18 09/20/16 21:41 Benadryl - PO 50 mg HSMR1 PRN Administration INSOMNIA Eucalyptus/Menthol/Phenol/Sorbitol 1 each 09/16/16 18:18 Cepastat Lozenge - MM Q4H PRN SORE THROAT Gabapentin 200 mg 09/20/16 14:00 09/26/16 06:19 Neurontin - PO 200 mg TID NAYANA Administration Guaifenesin 10 ml 09/16/16 18:18 Robitussin Dm - PO Q6H PRN COUGH Hydroxyzine Pamoate 50 mg 09/20/16 22:00 09/26/16 10:03 Vistaril - PO 50 mg BID NAYANA Administration Ibuprofen 400 mg 09/16/16 18:18 Motrin - PO Q6H PRN SEVERE PAIN Insulin Aspart 1 vial 09/17/16 07:00 09/26/16 06:20 Novolog Vial Sliding Scale - SQ Not Given ACBK COUNTS INCLUDE [facility] BEDS AT THE [facility] Protocol Insulin Aspart 1 vial 09/16/16 22:00 09/25/16 22:00 Novolog Vial Sliding Scale - SQ 2 units HS NAYANA Administration Protocol Loperamide HCl 4 mg 09/16/16 18:18 Imodium - PO Q6H PRN DIARRHEA Magnesium Citrate 300 ml 09/16/16 18:18 Citroma - PO Q48H PRN CONSTIPATION Magnesium Hydroxide 30 ml 09/16/16 18:18 Milk Of Magnesia - PO DAILY PRN CONSTIPATION Methadone HCl 80 mg/ Methadone 100 mg 09/25/16 06:00 09/26/16 06:19 HCl 20 mg PO 100 mg DAILY@0600 NAYANA Administration Nicotine 14 mg 09/17/16 10:00 09/26/16 10:10 Nicoderm Patch - TD Not Given DAILY NAYANA Nicotine Polacrilex 2 mg 09/16/16 18:18 Nicorette Gum - BC Q2H PRN NICOTINE REPLACEMENT RX Ondansetron HCl 8 mg 09/23/16 12:45 Zofran Odt - SL Q8H PRN NAUSEA Multivit/Folic Acid/Iron 1 tab 09/17/16 10:00 09/26/16 10:02 Vitamins (Sjr) - PO 1 tab DAILY NAYANA Administration Pseudoephedrine/Triprolidine 1 combo 09/16/16 18:18 Actifed - PO TID PRN NASAL CONGESTION Quetiapine Fumarate 25 mg 09/20/16 13:50 Seroquel - PO Q4H PRN AGITATION Ranitidine HCl 150 mg 09/19/16 22:00 09/26/16 10:02 Zantac - PO 150 mg BID NAYANA Administration Risperidone 1 mg 09/22/16 10:00 09/26/16 10:02 Risperdal - PO 1 mg BID NAYANA Administration Sertraline HCl 100 mg 09/22/16 10:00 09/26/16 10:02 Zoloft - PO 100 mg DAILY NAYANA Administration Thiamine HCl 100 mg 09/16/16 22:00 09/25/16 21:58 Vitamin B1 - PO 100 mg HS NAYANA Administration Current Side Effect: No Lab tests ordered: No Lab tests reviewed: Yes Provider note:: Patient has completed today his treatment and met his goals, will continue to address his issues at [facility] outpatient treatment program. He verbalized understanding the negative impact of drinking and using drugs and he motivated to continue maintain abstienence. He focused into importance of changing attitude for the utilization of supports to prevent relapses. Patient was encouraged to continue maintain sobriety He tolerated medications(Zoloft, Risperdal) well scripts provided for 30 days. Patient is stable for discharge. Total face to face time:: 25 Mental Status Exam - Mental Status Exam Alert and Oriented to: Time, Place, Person Cognitive Function: Good Patient Appearance: Well Groomed Mood: Hopeful Affect: Mood Congruent Patient Behavior: Appropriate, Cooperative Speech Pattern: Clear, Appropriate Voice Loudness: Normal Thought Process: Goal Oriented Thought Disorder: Not Present Hallucinations: Denies Suicidal Ideation: Denies Homicidal Ideation: Denies Insight/Judgement: Fair Sleep: Well Appetite: Good Muscle strength/Tone: Normal Gait/Station: Other (walking with a cane) Psychiatric Treatment Plan - Problem List (1) Methadone maintenance therapy patient Current Visit: Yes Comment: 100 MG VERIFICATION PENDING (2) Nicotine dependence Current Visit: Yes Qualifiers: Nicotine product type: cigarettes Substance use status: in withdrawal Qualified Code(s): F17.213 - Nicotine dependence, cigarettes, with withdrawal (3) Cocaine dependence Current Visit: Yes (4) Opioid dependence Current Visit: Yes (5) PTSD (post-traumatic stress disorder) Current Visit: Yes (6) Depression Current Visit: Yes
== END 2016-09-26 10:45 | disposition home or self-care (01) | DRG 772 ==
LOC: YASAS 13:22 → Y5N 18:52
PROVIDERS: ADMIT Psychiatry & Neurology Psychiatry; ATTEND Psychiatry & Neurology Psychiatry
PROC: HZ42ZZZ Group Counseling for Substance Abuse Treatment, Cognitive-Behavioral (ICD-10-PCS; principal; 2016-09-16)
DX: F11.20 Opioid dependence, uncomplicated (principal); F14.20 Cocaine dependence, uncomplicated; F17.210 Nicotine dependence, cigarettes, uncomplicated; F43.10 Post-traumatic stress disorder, unspecified; F33.9 Major depressive disorder, recurrent, unspecified; F25.9 Schizoaffective disorder, unspecified; K76.0 Fatty (change of) liver, not elsewhere classified; E11.9 Type 2 diabetes mellitus without complications; B18.2 Chronic viral hepatitis C; R45.851 Suicidal ideations; R26.2 Difficulty in walking, not elsewhere classified; Z99.89 Dependence on other enabling machines and devices; Z86.69 Personal history of other diseases of the nervous system and sense organs; Z87.898 Personal history of other specified conditions; Z91.5 Personal history of self-harm
CPT/HCPCS: 36415; 74170-TC; 76700-TC; 80048; 80053; 81003; 82009; 82150; 83690; 84450; 84460; 85025; 85027; 86593; 87389; 93005; 93010; J2794; Q9967